=== PATIENT | male | born 1960 | race Caucasian/White ===

== ENCOUNTER 2018-04-17 12:04 | Emergency (ER) | payer MEDICARE, MEDICAID ==
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
[2018-04-17 13:28] VITALS: BP 123/84
--- NOTE | 2018-04-17 13:33 | UC ---
General HPI - HPI Summary HPI Summary: fell last pm and bumped his L elbow. c/o pain over site. denies any other injury. tetanus is utd. - History of Current Complaint Stated Complaint: LEFT ELBOW INJURY S/P FALL Time Seen by Provider: 04/17/18 13:25 Hx Obtained From: Patient, Family/Emergency Department Director Onset/Duration: Sudden Onset Timing: Constant Aggravating: pressure over site - Allergy/Home Medications Allergies/Adverse Reactions: Allergies Allergy/AdvReac Type Severity Reaction Status Date / Time No Known Allergies Allergy Verified 04/17/18 13:31 Home Medications: Home Medications Neomycin/Bacitracin/Polymyxinb [Triple Antibiotic Ointment] 1 applic TOPICAL BID PRN 04/17/18 [History Confirmed 04/17/18] Triamcinolone 0.5% CREAM(NF) [Kenalog Cream 0.5%(NF)] 1 applic TOPICAL BID 04/17 [History Confirmed 04/17/18] PMH/Surg Hx/FS Hx/Imm Hx - Additional Past Medical History Additional PMH: Tourettes, rosacea, htn. anxiety, congitive limitation-mild - Surgical History Surgical History: None - Family History Known Family History: Positive: Unknown - pt unaware of his family history - Social History Lives: [facility] Alcohol Use: None Substance Use Type: None Smoking Status (MU): Never Smoked Tobacco - Immunization History Most Recent Influenza Vaccination: 05-01-15 Most Recent Tetanus Shot: 07-23-09 Hx Tetanus, Diphtheria Vaccination: Yes Vaccination Up to Date: Yes Review of Systems Constitutional: Negative Skin: Rash - 2 spots over l elbow, chronic Eyes: Negative ENT: Negative Respiratory: Negative Cardiovascular: Negative Gastrointestinal: Negative Genitourinary: Negative Motor: Negative Neurovascular: Negative Musculoskeletal: Other: - abrasion, mild swelling and redness over L elbow Neurological: Negative Psychological: Negative Is Patient Immunocompromised?: No All Other Systems Reviewed And Are Negative: Yes Physical Exam Triage Information Reviewed: Yes Appearance: Well-Appearing Vital Signs Reviewed: Yes Eyes: Positive: Conjunctiva Clear ENT: Positive: Normal ENT inspection Neck: Positive: Supple, Nontender, No Lymphadenopathy Respiratory: Positive: Chest non-tender, Lungs clear, Normal breath sounds Cardiovascular: Positive: RRR, No Murmur Abdomen Description: Positive: Nontender, No Organomegaly, Soft Bowel Sounds: Positive: Present Musculoskeletal: Positive: Other: - LUE: Shoulder is without deformity or tenderness. Elbow has mild swelling over the olecranon process consistent with a bursitis with an associated mild central abrasion and surrounding mild erythema and warmth. Patient notes tenderness to palpation. He is able to flex extend supinate and pronate the elbow without any pain. The forearm wrist and hand are atraumatic and the hand has full sensorivascular motor function. Head, cervical, thoracic and lumbar spine are without deformity or tenderness pelvis is without instability or tenderness and the rest of the extremities are atraumatic. Diagnostics - Radiology No standard instances Radiology Interpretation Completed By: Radiologist - IMPRESSION: No fracture of the left elbow is noted. Course/Dx - Course Course Of Treatment: no fx or dislocation. no concern for septic joint. mild bursitis on exam with abrasion and secondary cellulitis. - Differential Dx - Multi-Symptom Provider Diagnoses: Bursitis L elbow. Abrasion L elbow. cellulitis L elbow. Discharge - Sign-Out/Discharge Documenting (check all that apply): Patient Departure All imaging exams completed and their final reports reviewed: Yes - Discharge Plan Condition: Stable Disposition: HOME Prescriptions: Cephalexin CAP* [Keflex CAP*] 500 mg PO TID 10 Days #30 cap Patient Education Materials: Cellulitis (ED), Elbow Bursitis (ED) Referrals: Brigette Gómez MD [Primary Care Provider] - 2 Days Additional Instructions: GO TO THE ER FOR ANY WORSENING. - Billing Disposition and Condition Condition: STABLE Disposition: Home
--- NOTE | 2018-04-17 14:05 | RAD ---
Indication: Left elbow pain. 4 views of left elbow demonstrates no fracture. No joint effusion is noted. IMPRESSION: No fracture of the left elbow is noted.
[2018-04-17] MEDS ORDERED: Cephalexin CAP* 500 MG PO ONE (14:25)
== END 2018-04-17 14:34 | disposition home or self-care (01) ==
LOC: UCCORT 12:04
DX: M70.32 Other bursitis of elbow, left elbow (principal); S50.312A Abrasion of left elbow, initial encounter; W19.XXXA Unspecified fall, initial encounter; Y92.9 Unspecified place or not applicable; L03.114 Cellulitis of left upper limb
CPT/HCPCS: 99212; A9270-GY; G0463

== ENCOUNTER 2018-05-21 16:53 | Emergency (ER) | payer MEDICARE, MEDICAID ==
--- OUTSIDE RECORDS SUMMARY | 2018-05-21 18:28 | XMS REPORT | Continuity of Care Document ---
:1960 External Reference #:[id number] Author Name Randa Camacho Care Team Providers Name Role Phone Brigette Gómez M.D. Care Team Information Netsuite Developer Unavailable Brigette Gómez M.D. Primary Care Physician Unavailable Payers Type Date Identification Numbers Payment Provider Subscriber Effective: 2013 Policy Number: [id number] Medicare Nathaniel Vanessa PayID: [id number] [address] [place] [address] Policy Number: [id number] Medicaid/Medicare Nathaniel Vanessa Group Name: 2 1 [address] PayID: [id number] [place] [address] Advance Directives Description No Information Available Problems Date Description Provider Status Onset: 12/28/2013 Raised prostate specific antigen Chaim Staples MD Active Onset: 12/28/2013 Benign prostatic hypertrophy with Johan Parker M.D. Active outflow obstruction Family History Date Family Member(s) Problem(s) Comments Father due to Cancer () Mother Unknown Social History Type Date Description Comments Sex Unknown Marital Status Patient is single Occupation Disabled Tobacco Use Reviewed: 12/10/17 Never Smoked Cigarettes Smoking Status Reviewed: 05/14/18 Never Smoked Cigarettes Tobacco Use Start: Unknown Never Smoked Cigars Tobacco Use Start: Unknown Never Smoked A Pipe ETOH Use Patient denies alcohol use Allergies, Adverse Reactions, Alerts Description No Known Drug Allergies Medications Medication Date Status Form Strength Qnty SIG Indications Ordering Provider Guanfacine HCL ER 06/16 Active Tablets 1mg 2 po q hs Arnold ER 24HR MD Kevin Benztropine 00/ Active Tablets 1mg 1 po q am Unknown Mesylate /0000 Fluoxetine HCL Active Capsules 20mg 1 tab every Unknown /0000 day by mouth Haloperidol 00 Active Tablets 0.5mg 1 po bid Unknown /0000 Hydrochlorothiazid Active Tablets 12.5mg 1 by mouth Unknown e /0000 every day Debrox 00 Active Solution 6.5% 2 gtts to Unknown /0000 each ear j for the first 5 days of each month Triamcinolone Active Cream 0.5% apply to Unknown Acetonide /0000 affected sparingly twice a day until resolved Metronidazole Active Cream 0.75% apply 1 Unknown / application topically to affected area daily at bedtime after cleansing Cipro 04/01 Hx Tablets 500mg 6tabs twice a day Johan Kamara, - M.DLoraine 04/04 Ciprofloxacin HCL 01/10 Hx Tablets 500mg 28tab 1 by mouth [facility] s twice a day Johan Kamara, - M.DLoraine 01/24 Ciprofloxacin HCL 11/17 Hx Tablets 500mg 6tabs 790.93 Johan Kamara, Salvador M.DLoraine 11/20 Metronidazole 11/09 Hx Gel 0.75% 70gm 1 apply to face and Johan Kamara, - scalp after M.D. 06/16 cleansing every bedtime Debrox 11/09 Hx Solution 6.5% 1bott 2 drop to le each ear Johan Kamara, - canal daily M.D. 06/16 for the first 5 days of each month Hydrocortisone Hx Cream 0.1% 45gm apply to Unknown Butyrate /0000 affected - areas bid- 11/17 three times a day as needed Hydrochlorothiazid Hx Tablets 12.5mg 30tab 1 by mouth Unknown e /0000 s every day - 06/16 Cogentin Hx Solution 1mg/ml 1 po bid Unknown - 11/17 Haldol Decanoate Hx Solution 1mg 1/2 tab Unknown twice a day - 07/18 Tenex Hx Tablets 1mg 2 tabs po Unknown qhs - 11/17 Benztropine Hx Tablets 1mg Unknown Mesylate / - 06/16 Guanfacine HCL 00 Hx Tablets 2mg Unknown - 06/16 Guanfacine HCL 0000 Hx Tablets 1mg Joyman, /0000 Salvador Ge MD 07/18 Haloperidol Hx Tablets 0.5mg Pam, /0000 Salvador Ge MD 06/16 Trilyte Hx Solution 420gm Syam, /0000 Salvador Keith M.D. 07/19 Hydrochlorothiazid 00 Hx Capsules 12.5mg Rico e /0000 Salvador Machuca M.D. 07/18 Metronidazole Hx Cream 0.75% Rico, /0000 Salvador Machuca M.D. 07/18 Guanfacine HCL Hx Tablets 1mg Unknown /0000 - 02/27 Immunizations Description No Information Available Vital Signs Date Vital Result Comment 05/14/2018 3:11pm Height 69 inches 5'9" Weight 150.00 lb Weight 68.040 kg BMI (Body Mass Index) 22.1 kg/m2 12/10/2017 3:38pm Height 69 inches 5'9" Weight 150.00 lb Weight 68.040 kg BMI (Body Mass Index) 22.1 kg/m2 BP Systolic 136 mmHg BP Diastolic 82 mmHg Heart Rate 72 /min Respiratory Rate 18 /min 06/10/2017 3:27pm Height 69 inches 5'9" Weight 156.00 lb Weight 70.762 kg BMI (Body Mass Index) 23.0 kg/m2 BP Systolic 140 mmHg BP Diastolic 88 mmHg Heart Rate 4 /min 02/28/2016 3:49pm Height 69 inches 5'9" Weight 162.00 lb Weight 73.483 kg BMI (Body Mass Index) 23.9 kg/m2 BP Systolic 124 mmHg BP Diastolic 80 mmHg Heart Rate 78 /min Body Temperature 97.8 F 02/28/2015 3:23pm Height 69 inches 5'9" Weight 160.00 lb Weight 72.576 kg BMI (Body Mass Index) 23.6 kg/m2 BP Systolic 128 mmHg BP Diastolic 76 mmHg Heart Rate 68 /min Respiratory Rate 16 /min Body Temperature 97.2 F 11/17/2013 12:08pm Height 69 inches 5'9" Weight 161.00 lb Weight 73.030 kg BMI (Body Mass Index) 23.8 kg/m2 BP Systolic 142 mmHg left wrist audio BP Diastolic 92 mmHg left wrist audio Heart Rate 68 /min Body Temperature 97.6 F Results Test Date Facility Test Result H/L Range Note 230 Ua Routine 05/14/2018 [facility] Ua Glucose Negative REF TO DR ADDRESS ON ORDER FOR (315)- - Ua Protein Negative Ua Nitrite Negative Ua Leuko Trace * Ua Blood Negative Ua Color Yellow Ua Ketones Negative Ua Clarity Clear Ua Specific Brewer 1.010 1.003-1.030 Ua PH 7.0 5.0-7.5 Ua Bilirubin Negative Ua Urobilinogen 0.2 E.U./dL 0.0-1.0 Laboratory test 05/14/2018 [facility] Total PSA 23.97 ng/mL High 0.00-4.[address] [place] [address] With Reflex [place], [place] [id number] [phone] 230 Ua Routine 12/10/2017 [facility] Ua Glucose Negative REF TO DR ADDRESS ON ORDER FOR (315)- - Ua Protein Negative Ua Nitrite Negative Ua Leuko 2+ * Ua Blood Negative Ua Color Yellow Ua Ketones Negative Ua Clarity Clear Ua Specific Brewer 1.010 1.003-1.030 Ua PH 7.0 5.0-7.5 Ua Bilirubin Negative Ua Urobilinogen 0.2 E.U./dL 0.0-1.0 Laboratory test 12/10/2017 [facility] Total Psa 26.53 ng/mL High 0.00-4.[address] [place] [address] [phone] Laboratory test 06/10/2017 [facility] Total Psa 25.41 ng/mL High 0.00-4.[address] [place] [address] [phone] 230 Ua Routine 06/10/2017 [facility] Ua Glucose Negative REF TO DR ADDRESS ON ORDER FOR (315)- - Ua Protein Negative Ua Nitrite Negative Ua Leuko 3+ * Ua Blood 1+ * Ua Color yellow Ua Ketones Negative Ua Clarity clear Ua Specific Brewer 1.010 1.003-1.030 Ua PH 6.0 5.0-7.5 Ua Bilirubin Negative Ua Urobilinogen 0.2 E.U./dL 0.0-1.0 230 Ua Routine 11/26/2016 [facility] Ua Glucose Negative REF TO DR ADDRESS ON ORDER FOR (315)- - Ua Protein Negative Ua Nitrite Negative Ua Leuko Trace * Ua Blood Trace-intact * Ua Color yellow Ua Ketones Negative Ua Clarity clear Ua Specifici Brewer <=1.005 1.003-1.030 Ua PH 6.0 5.0-7.5 Ua Bilirubin Negative Ua Urobilinogen 0.2 E.U./dL 0.0-1.0 Laboratory test 11/26/2016 [facility] Total Psa 33.66 High 0.00-4.00 finding [address] [facility] Only ng/[place] [address] [phone] Testosterone 560.52 ng/dL 300.00-1000.00 Prostate Biopsy 04/29/2016 [facility] Clinical History R97.20 N [address] [place] [address] [phone] Left Base Benign prostatic <SEE NOTE> N 1 Left Lateral Base Benign prostatic <SEE NOTE> N 2 Left Mid Benign prostatic <SEE NOTE> N 3 Left Lateral Mid Benign prostatic <SEE NOTE> N 4 Left Brewster Benign prostatic <SEE NOTE> N 5 Left Lateral Brewster Benign prostatic <SEE NOTE> N 6 Right Base Benign prostatic <SEE NOTE> N 7 Right Lateral Base Benign prostatic <SEE NOTE> N 8 Right Mid Benign prostatic <SEE NOTE> N 9 Right Lateral Mid Benign prostatic <SEE NOTE> N 10 Right Brewster Benign prostatic <SEE NOTE> N 11 Right Lateral Brewster Benign prostatic <SEE NOTE> N 12 Right Mid Transition Zone Benign prostatic <SEE NOTE> N 13 Left Mid Transition Zone Benign prostatic <SEE NOTE> N 14 PDF Report SEE IMAGE CBC W/Diff 04/15/2016 [facility] Hemoglobin 15.6 12.8-17.0 [address] [place], [place] [id number] [phone] Hematocrit 46.6 38.0-48.0 BMP 04/15/2016 [facility] BUN - Urea Nitrogen 12 7 -18 [address] [place] [address] [phone] Creatinine 1.1 0.6-1.3 Calcium 8.9 8.5-10.1 Potassium 3.7 3.5-5.1 Laboratory test 04/15/2016 [facility] Rectal Swab NEGATIVE - No 15 finding [address] [facility] Screen Fl <SEE NOTE> [place] [address] [phone] 230 Ua Routine 04/01/2016 [facility] Ua Glucose Negative REF TO DR ADDRESS ON ORDER FOR (315)- - Ua Protein Negative Ua Nitrite Negative Ua Leuko 1+ * Ua Blood Negative Ua Color yellow Ua Ketones Negative Ua Clarity clear Ua Specifici Brewer 1.010 1.003-1.030 Ua PH 6.5 5.0-7.5 Ua Bilirubin Negative Ua Urobilinogen 0.2 E.U./dL 0.0-1.0 BUN And Creatinine 03/07/2016 [facility] BUN - Urea 12 7-[address] [place] [address] [phone] Creatinine 1.1 0.6-1.3 Laboratory test 02/28/2016 [facility] Total Psa 20.81 High 0.00-4.[address] [place] [address] Only ng/mL [place], [place] [id number] [phone] Testosterone 510.98 ng/dL 300.00-1000.00 230 Ua Routine 02/28/2016 [facility] Ua Glucose Negative REF TO DR ADDRESS ON ORDER FOR (315)- - Ua Protein Negative Ua Nitrite Negative Ua Leuko 1+ * Ua Blood Negative Ua Color yellow Ua Ketones Negative Ua Clarity clear Ua Specifici Brewer 1.015 1.003-1.030 Ua PH 7.0 5.0-7.5 Ua Bilirubin Negative Ua Urobilinogen 0.2 E.U./dL 0.0-1.0 230 Ua Routine 08/28/2015 [facility] Ua Glucose Negative REF TO DR ADDRESS ON ORDER FOR (315)- - Ua Protein Negative Ua Nitrite Negative Ua Leuko Trace * Ua Blood Negative Ua Color yellow Ua Ketones Negative Ua Clarity clear Ua Specific Brewer 1.015 1.003-1.030 Ua PH 7.0 5.0-7.5 Ua Bilirubin Negative Ua Urobilinogen 0.2 E.U./dL 0.0-1.0 Laboratory test 08/28/2015 [facility] Total Psa 25.31 High 0.00-4.[address] [place] [address] ST Only ng/[place] [address] [phone] Testosterone 488.41 ng/dL 300.00-1000.00 #Ua Routine 02/28/2015 [facility] Ua Glucose Negative REF TO DR ADDRESS ON ORDER FOR (315)- - Ua Protein Negative Ua Nitrite Negative Ua Leuko Trace * Ua Blood Negative Ua Color yellow Ua Ketones Negative Ua Clarity clear Ua Specific Brewer 1.025 1.003-1.030 Ua PH 6.5 5.0-7.5 Ua Bilirubin Negative Ua Urobilinogen 0.2 E.U./dL 0.0-1.0 Laboratory 02/23/2015 [facility] Total Psa 21.85 ng/ mL High 0.00-4.00 test finding [address] [place] [address] [place] [address] [phone] Prostate 08/14/2014 [facility] Elevated N [address] [place] [address] History PSA, 79 <[place] [address] NOTE> [phone] BodySite PROSTATE N SubSite RIGHT LATERAL AP <SEE NOTE> N 17 SpecialProcedure BIOPSY N Final Diagnosis Benign prostatic <SEE NOTE> N 18 Stain 1-3 N CPTCode 46902i06 N [id number] 790.93 N PDF Report SEE IMAGE #Ua Routine 07/19/2014 [facility] Ua Glucose Negative REF TO DR ADDRESS ON ORDER FOR (315)- - Ua Protein Negative Ua Nitrite Negative Ua Leuko Negative Ua Blood Negative Ua Color yellow Ua Ketones Negative Ua Clarity clear Ua Specific Brewer 1.025 1.003-1.030 Ua PH 7.0 5.0-7.5 Ua Bilirubin Negative Ua Urobilinogen 0.2 E.U./dL 0.0-1.0 Laboratory test 07/19/2014 [facility] Rectal Swab NEGATIVE - No [address] [place] [address] Screen Fl <SEE NOTE> [place] [address] [phone] Laboratory test 07/17/2014 [facility] Total Psa 15.61 ng/mL High 0.00- finding [address] [place] [address] Only 4.[address] [place] [address] [phone] Testosterone 401.14 ng/dL 300.00-1000.00 Prostate Biopsy 01/02/2014 [facility] Clinical History Elevated PSA 790 N [address] [place] [address] <SEE NOTE> [place] [address] [phone] BodySite PROSTATE N SubSite RIGHT LATERAL AP <SEE NOTE> N 21 SpecialProcedure BIOPSY N Final Diagnosis Benign prostatic <SEE NOTE> N 22 CPTCode 70203w41 N [id number] 790.93 N PDF Report SEE IMAGE Rectal Swab SCR 11/17/2013 [facility] Rectal Swab NEGATIVE - No 23 Panel 1226 [facility] <SEE NOTE> [place] [address] [phone] #Ua Routine 11/17/2013 [facility] Ua Glucose Negative REF TO DR ADDRESS ON ORDER FOR (315)- - Ua Protein Negative Ua Nitrite Negative Ua Leuko Trace * Ua Blood Negative Ua Color yellow Ua Ketones Negative Ua Clarity clear Ua Specific Brewer 1.010 1.003-1.030 Ua PH 6.5 5.0-7.5 Ua Bilirubin Negative Ua Urobilinogen 0.2 E.U./dL 0.2-1 Laboratory test 08/24/2013 Outside Facility PSA Total 19.5 High 0.0-4.0 finding (315)- - BUN & Creatinine 08/24/2013 Outside Facility BUN - Urea 9 9-21 ([facility]) (315)- - Nitrogen Creatinine Serum 1.1 0.8-1.5 BUN & Creatinine 08/26/2012 Outside Facility BUN - Urea Nitrogen 11 5- 23 ([facility]) (315)- - Creatinine Serum 1.0 0.5-1.4 BUN & Creatinine ([facility]) 08/22/2011 Outside Facility BUN - Urea Nitrogen 14 (315)- - Creatinine Serum 1.0 1 Benign prostatic tissue. 2 Benign prostatic tissue. 3 Benign prostatic tissue. 4 Benign prostatic tissue. 5 Benign prostatic tissue. 6 Benign prostatic tissue. 7 Benign prostatic tissue. 8 Benign prostatic tissue. Mild acute inflammation present. 9 Benign prostatic tissue. Mild acute inflammation present. 10 Benign prostatic tissue. 11 Benign prostatic tissue. 12 Benign prostatic tissue. 13 Benign prostatic tissue. Mild acute inflammation present. 14 Benign prostatic tissue. 15 NEGATIVE - No Fluoroquinolone Resistant Organisms Isolated 16 Elevated PSA, 790.93 17 RIGHT LATERAL APEX 18 Benign prostatic tissue. 19 NEGATIVE - No Fluoroquinolone Resistant Organisms Isolated 20 Elevated PSA 790.93 21 RIGHT LATERAL APEX 22 Benign prostatic tissue. 23 NEGATIVE - No Fluoroquinolone Resistant Organisms Isolated Procedures Date Code Description Status 04/29/2016 34813 Ultrasonic Guidance For Needle Completed Placement(Biopsy);Supervis & Inter 04/29/2016 84958 Ultrasound,Prostate-Ultrasound Completed 04/29/2016 74344 Biopsy, Prostate, Needle Or Punch, Single Or Multiple, Completed Any Approa 08/28/2015 44146 Bladder Scan, Post Voiding Residual Urine Completed 08/14/2014 95032 Ultrasonic Guidance For Needle Completed Placement(Biopsy);Supervis & Inter 08/14/2014 41976 Ultrasound,Prostate-Ultrasound Completed 08/14/2014 66436 Biopsy, Prostate, Needle Or Punch, Single Or Multiple, Completed Any Approa 01/02/2014 67360 Ultrasonic Guidance For Needle Completed Placement(Biopsy);Supervis & Inter 01/02/2014 84109 Ultrasound,Prostate-Ultrasound Completed 01/02/2014 01164 Biopsy, Prostate, Needle Or Punch, Single Or Multiple, Completed Any Approa 11/17/2013 31604 Ultrasound, Pelvic Limited (Bladder US) Completed 10/27/2013 [id number] Colonoscopy Completed Encounters Type Date Location Provider Dx Diagnosis Office Visit 12/10/2017 Tory Estrada R97.20 Elevated prostate 3:30p Urology Claire,P.A. specific antigen [PSA] Office Visit 06/10/2017 Tory Estrada R97.20 Elevated prostate 3:30p Urology ClaireP.ALoraine specific antigen [PSA] N40.1 Benign prostatic hyperplasia with lower urinary tract symp Office Visit 11/26/2016 Johan Porter R97.20 Elevated 3:10p Keturahy Marion Kamara prostate specific antigen [PSA] N40.1 Benign prostatic hyperplasia with lower urinary tract symp Office Visit 05/20/2016 Johan Porter R97.20 Elevated 2:40p Jay Kamara M.D. prostate specific antigen [PSA] N40.1 Benign prostatic hyperplasia with lower urinary tract symp Office Visit 04/01/2016 Johan Porter R97.2 Elevated 3:00p Urology Marion Kamara prostate specific antigen [PSA] N40.1 Enlarged prostate with lower urinary tract symptoms Office Visit 02/28/2016 Johan Porter R97.2 Elevated 3:20p Urology Marion Kamara prostate specific antigen [PSA] N40.1 Enlarged prostate with lower urinary tract symptoms R35.1 Nocturia Office Visit 08/28/2015 Sawyer/Johan Miller R97.2 Elevated 3:00p Urology Marion Kamara prostate specific antigen [PSA] N40.1 Enlarged prostate with lower urinary tract symptoms R35.1 Nocturia N39.41 Urge incontinence R35.0 Frequency of micturition Office Visit 02/28/2015 Sawyer/Johan Miller 790.93 Elevated 3:00p Urology Marion Kamara Prostate Specific Antigen (PSA) 600.01 Hypertrophy Benign Of Prostate With Urinary Obstruction Office Visit 09/01/2014 9:15a Sawyer/Liz Carbajal, 790.93 Elevated Urology MATHEMATICAL ENGINEER/PA Prostate Specific Antigen (PSA) Office Visit 07/19/2014 3:00p Sawyer/Long Parker 790.93 Elevated Urology Johan Kamara M.D. Prostate Specific Antigen (PSA) 600.01 Hypertrophy Benign Of Prostate With Urinary Obstruction Office Visit 01/10/2014 Sawyer/Johan Miller 790.93 Elevated 2:30p Urologstephan Kamara M.D. Prostate Specific Antigen (PSA) 600.01 Hypertrophy Benign Of Prostate With Urinary Obstruction Office Visit 11/17/2013 Sawyer/Johan Miller 790.93 Elevated 11:50a Urologstephan Kamara M.D. Prostate Specific Antigen (PSA) 600.01 Hypertrophy Benign Of Prostate With Urinary Obstruction Plan of Treatment 05/14/2018 - Vasiliy Rangel,P.A.R97.20 Elevated prostate specific antigen [ PSA]Comments:Unless otherwise indicated follow-up [address] Brown
--- OUTSIDE RECORDS SUMMARY | 2018-05-21 18:29 | XMS REPORT ---
:1960 External Reference #:[id number] Author Organization [facility] Address [address] [address] Phone [phone] Care Team Providers Name Role Phone Brigette Gómez MD Primary Care Physician Unavailable Payers Type Date Identification Numbers Payment Provider Subscriber Medicare Primary Policy Number: [id number] Medicare Nathaniel Vanessa PayID: [id number] [address] [place] [address] [employer] Part B Policy Number: [id number] Medicaid ### >11 Nathaniel Vanessa PayID: [id number] [address] [place] [address] Problems Date Description Provider Status Onset: 04/29/2013 [...] Day as Needed For Minor Cuts/Wound s NV-Acid 07/23 Active Suspension 200-200-2 00uni 1 0mg/5ML [...] Tablets 1mg 1 po bid F95.2 Kalpana Orozcoylate MD Juju Prozac Active Capsules 20mg 1 [...] CPT Code Status Date Vaccine Lot # [id number] Given 04/02/2018 Afluria Imunization 40155 Given 05/06/2017 Afluria Or Fluvirin Flu Vac Intramuscular Q2037 Given 04/13/2016 Fluvirin Immunization 02909 Given 02/25/2016 Tetanus And Diptheria Toxoids For Adult [id number] Use-preservative free Q2037 Given 07/28/2014 Fluvirin Immunization 07778 Given 03/15/2013 Afluria Or Fluvirin Flu Vac Intramuscular 40393 Given 03/11/2012 Afluria Or Fluvirin Flu Vac Intramuscular 86928 Given 03/06/2011 Afluria Or Fluvirin Flu Vac Intramuscular 89858 Given 07/23/2009 Tdap (Adacel) Ages 7 And Above Only 26269 Given 03/22/2009 Afluria Or Fluvirin Flu Vac Intramuscular 65054 Given 05/01/2008 Afluria Or Fluvirin Flu Vac Intramuscular 92699 Given 04/20/2007 Afluria Or Fluvirin Flu Vac Intramuscular 48916 Given 06/10/2006 Afluria Or Fluvirin Flu Vac Intramuscular 15599 Given 05/07/2005 Afluria Or Fluvirin Flu Vac Intramuscular 89447 Given 05/07/2004 Afluria Or Fluvirin Flu Vac Intramuscular 55187 Given 02/26/2004 Immunization Td 7 Yrs Or Older Vital Signs Date Vital Result Comment 04/26/2018 Body Temperature 97.6 F Weight 159.00 lb Heart Rate 72 /min BP Systolic 118 mmHg BP Diastolic 70 mmHg Respiratory Rate 18 /min Height 70 inches 5'10" BMI (Body Mass Index) 22.8 kg/m2 03/29/2018 Weight 157.00 lb Heart Rate 63 [...] 1 Lymph % 21.2 % 20.0-42.0 1 Barrow % 4.1 % 0.0-10.0 1 Eo% 5.6 % 0.0-6.6 1 Bas% 0.5 % 0.0-1.1 1 Neut# 2.69 K/uL 1.8-7.0 1 Lymph # 0.83 K/uL Low 1.0-4.0 1 Barrow # 0.16 K/uL 0.0-0.8 1 Eos # 0.22 K/uL 0.0-0.5 1 Baso # 0.02 K/uL 0.0-0.1 1 Comprehensive Met Panel-FCM 03/27/2018 Glucose 94 mg/dL 74-106 1 BUN [...] 1 5.0-7.5 Ua Protein Negative Ua Specific [place] 1.010 1 1.003-1.030 Ua Urobilinogen 0.2 E.U./dL 0.0-1.0 Laboratory test finding 06/10/2017 Total Psa Only 25.41 ng/mL High 0.00- 4.00 230 Ua Routine 06/10/2017 Ua Bilirubin Negative Ua Blood 1+ Ua Clarity clear Ua Color yellow Ua Glucose Negative Ua Ketones Negative Ua Leuko 3+ Ua Nitrite Negative Ua PH 6.0 1 5.0-7.5 Ua Protein Negative Ua Specific [place] 1.010 1 1.003-1.030 Ua Urobilinogen 0.2 E.U./dL [...] Lymph % 18.0 % Low 20.0-42.0 7 Barrow % 4.6 % 0.0-10.0 7 Eo% 4.4 % 0.0-6.6 7 Bas% 0.8 % 0.0-1.1 7 Neut# 4.41 K/uL 1.8-7.0 7 Lymph # 1.10 K/uL 1.0-4.0 7 Barrow # 0.28 K/uL 0.0-0.8 7 Eos # [...] 0.0-4.0 % Lymph 22 % 20-44 % Barrow 5.4 % 2.0-10.0 % Yvon 66 % 50-70 Absolute Baso. 0.1 K/ul 0.0-0.3 Absolute Eos. 0.3 K/ul 0.0-0.5 Absolute Lymph. 1.1 K/ul 0.8-4.8 Absolute Barrow. 0.3 K/ul 0.1-1.0 Absolute Yvon. 3.34 K/ul [...] with a HCV Nucleic Acid Amplification test ([id number]). Performed at: [facility] [address] [id number] Home Inspector: Sonia Davalos MD, Phone: [phone] 14 today 15 Concerning GFR Guidelines for [...] Date CPT Code Description Status Comment 09/24/2017 63198 Brief Emotional/Behav Assessment W/ Completed Scoring Doc Per Standard Inst 03/26/2017 41397 Brief Emotional/Behav Assessment W/ Completed Scoring Doc Per Standard Inst 06/12/2016 28920 Remove Impacted Cerumen Requiring Completed Instrumentation 04/18/2016 99970 Electrocardiogram Complete Completed 11/03/2014 00743 Remove Impacted Cerumen Requiring Completed Instrumentation 10/25/2013 Colonoscopy Completed repeat in 10 years Encounters Type Date Location Provider CPT E/M Dx Office Visit 03/29/2018 1:00p [facility] Brigette Gómez MD G0439 Z00.00 Z71.9 Z13.89 F95.2 H40.9 L71.9 I10 Office Visit 11/16/2017 9:30a [facility] [place] [address] L20.9 Office Visit 09/24/2017 1:00p [facility] Brigette Gó[place] [address] F95.2 L71.9 I10 R97.20 Z13.89 Z68.22 Office Visit 03/26/2017 1:30p [facility] Brigette Gómez MD G0439 Z00.00 F95.2 H40.9 L71.9 I10 R97.20 Z68.23 Office Visit 12/16/2016 2:45p [facility] Brigette Gó[place] [address] R21 Office Visit 08/26/2016 2:30p [facility] Brigette Gó[place] [address] F95.2 L71.9 I10 R97.20 Z11.59 Office Visit 04/18/2016 1:45p [facility] Brigette Gó[place] [address] Z01.818 R97.20 F95.2 H40.9 L71.9 I10 Office Visit 04/11/2016 11:30a [facility] [place] [address] B35.3 L03.032 Office Visit 03/11/2016 2:00p [facility] Brigette Gómez MD G0439 Z00.00 R97.2 I10 L71.9 H40.9 F95.2 Office Visit 02/25/2016 2:30p [facility] Kavitha Huerta, REFINERY PIPELINE OPERATOR 38805 Y04.1xxA Z23 Office Visit 10/01/2015 9:15a [facility] Brigette Gó[place] [address] F95.2 H40.9 L71.9 R97.2 I10 Office Visit 07/24/2015 8:45a [facility] Brigette Gó[place] [address] Y04.1xxA S51.851A F95.2 Office Visit 03/08/2015 9:00a [facility] Brigette Gómez MD G0439 V70.0 307.23 365.9 695.3 790.93 Office Visit 11/03/2014 2:00p [facility] Kavitha Huerta, REFINERY PIPELINE OPERATOR [address] 380.4 Office Visit 09/28/2014 9:15a [facility] Brigette Gó[place] [address] 307.23 365.9 695.3 401.1 790.93 Plan of Care Future Appointment(s):04/01/2019 9:00 am - Brigette Gómez MD at [facility]09/27/2018 9:00 am - Brigette Gómez MD at [facility]04/26/2018 - Kim Gray, PAL03.114 Cellulitis of LEFT upper limbComments:Resolving cellulitisContinue triple ABX ointmentMonitor for fevers, chills, worsening redness, swelling, drainage, or warmthFollow up:Prn
--- OUTSIDE RECORDS SUMMARY | 2018-05-21 18:29 | XMS REPORT | Continuity of Care Document ---
:1960 External Reference #:[id number] Author Name Randa Camacho Care Team Providers Name Role Phone Brigette Gómez M.D. Care Team Information Level Vial Marker Unavailable Brigette Gómez M.D. Primary Care Physician Unavailable Payers Type Date Identification Numbers Payment Provider Subscriber Effective: 2013 Policy Number: [id number] Medicare Nathaniel Vanessa PayID: [id number] [address] [place] [address] Policy Number: [id number] Medicaid/Medicare Nathaniel Vanessa Group Name: 2 1 [address] PayID: [id number] [place] [address] Advance Directives Description No Information Available Problems [...] Hx Tablets 500mg 28tab 1 by mouth [facility] s twice a day Johan Kamara, - [...] Ketones Negative Ua Clarity Clear Ua Specific [place] 1.010 1.003-1.030 Ua PH 7.0 5.0-7.5 Ua Bilirubin Negative Ua Urobilinogen 0.2 E.U./dL 0.0-1.0 Laboratory test 05/14/2018 [facility] [employer] Total Psa Only <pending> finding [address] [place] [address] [id number] [phone] 230 Ua Routine 12/10/2017 [facility] Ua Glucose Negative REF TO DR ADDRESS ON ORDER FOR (315)- - Ua Protein Negative Ua Nitrite Negative Ua Leuko 2+ * Ua Blood Negative Ua Color Yellow Ua Ketones Negative Ua Clarity Clear Ua Specific [place] 1.010 1.003-1.030 Ua PH 7.0 5.0-7.5 Ua Bilirubin Negative Ua Urobilinogen 0.2 E.U./dL 0.0-1.0 Laboratory test 12/10/2017 [employer] Total Psa 26.53 ng/mL High 0.00-4.[address] [place] [address] [phone] Laboratory test 06/10/2017 [employer] Total Psa 25.41 ng/mL High 0.00-4.[address] [place] [address] [phone] 230 Ua Routine 06/10/2017 [facility] Ua Glucose Negative REF TO DR ADDRESS ON ORDER FOR (315)- - Ua Protein Negative Ua Nitrite Negative Ua Leuko 3+ * Ua Blood 1+ * Ua Color yellow Ua Ketones Negative Ua Clarity clear Ua Specific [place] 1.010 1.003-1.030 Ua PH 6.0 5.0-7.5 Ua Bilirubin Negative Ua Urobilinogen 0.2 E.U./dL 0.0-1.0 230 Ua Routine 11/26/2016 [facility] Ua Glucose Negative REF TO DR ADDRESS ON ORDER FOR (315)- - Ua Protein Negative Ua Nitrite Negative Ua Leuko Trace * Ua Blood Trace-intact * Ua Color yellow Ua Ketones Negative Ua Clarity clear Ua Specifici [place] <=1.005 1.003-1.030 Ua PH 6.0 5.0-7.5 Ua Bilirubin Negative Ua Urobilinogen 0.2 E.U./dL 0.0-1.0 Laboratory test 11/26/2016 [employer] Total Psa 33.66 High 0.00-4.00 finding 12[address] [facility] Only ng/[place] [address] [phone] Testosterone 560.52 ng/dL 300.00-1000.00 Prostate Biopsy 04/29/2016 [facility] Clinical History R97.20 N 1226 [place], [place] [id number] [phone] Left Base Benign prostatic <SEE NOTE> N 1 Left Lateral Base Benign prostatic <SEE NOTE> N 2 Left Mid Benign prostatic <SEE NOTE> N 3 Left Lateral Mid Benign prostatic <SEE NOTE> N 4 Left Elgin Benign prostatic <SEE NOTE> N 5 Left Lateral [place] Benign prostatic <SEE NOTE> N 6 Right Base Benign prostatic <SEE NOTE> N 7 Right Lateral Base Benign prostatic <SEE NOTE> N 8 Right Mid Benign prostatic <SEE NOTE> N 9 Right Lateral Mid Benign prostatic <SEE NOTE> N 10 Right [place]gin Benign prostatic <SEE NOTE> N 11 Right Lateral [place] Benign prostatic <SEE NOTE> N 12 Right Mid Transition Zone Benign prostatic <SEE NOTE> N 13 Left Mid Transition Zone Benign prostatic <SEE NOTE> N 14 PDF Report SEE IMAGE CBC W/Diff 04/15/2016 [facility] Hemoglobin 15.6 12.8-17.0 [address] [place], [place] [id number] [phone] Hematocrit 46.6 38.0-48.0 BMP 04/15/2016 [facility] BUN - Urea Nitrogen 12 7 -18 [address] [place], [place] [id number] [phone] Creatinine 1.1 0.6-1.3 Calcium 8.9 8.5-10.1 Potassium 3.7 3.5-5.1 Laboratory test 04/15/2016 [facility] Rectal Swab NEGATIVE - No 15 finding 1226 [facility] Fl <SEE NOTE> [place] [address] [phone] 230 Ua Routine 04/01/2016 [facility] Ua Glucose Negative REF TO DR ADDRESS ON ORDER FOR (315)- - Ua Protein Negative Ua Nitrite Negative Ua Leuko 1+ * Ua Blood Negative Ua Color yellow Ua Ketones Negative Ua Clarity clear Ua Specifici [place] 1.010 1.003-1.030 Ua PH 6.5 5.0-7.5 Ua Bilirubin Negative Ua Urobilinogen 0.2 E.U./dL 0.0-1.0 BUN And Creatinine 03/07/2016 [facility] BUN - Urea 12 7-[address] [place] [address] [phone] Creatinine 1.1 0.6-1.3 Laboratory test 02/28/2016 [facility] [employer] [employer] Total Psa 20.81 High 0.00-4.00 finding [address] [facility] [address] Only ng/[place] [address] [phone] Testosterone 510.98 ng/dL 300.00-1000.00 230 Ua Routine 02/28/2016 [facility] Ua Glucose Negative REF TO DR ADDRESS ON ORDER FOR (315)- - Ua Protein Negative Ua Nitrite Negative Ua Leuko 1+ * Ua Blood Negative Ua Color yellow Ua Ketones Negative Ua Clarity clear Ua Specifici [place] 1.015 1.003-1.030 Ua PH 7.0 5.0-7.5 Ua Bilirubin Negative Ua Urobilinogen 0.2 E.U./dL 0.0-1.0 230 Ua Routine 08/28/2015 [facility] Ua Glucose Negative REF TO DR ADDRESS ON ORDER FOR (315)- - Ua Protein Negative Ua Nitrite Negative Ua Leuko Trace * Ua Blood Negative Ua Color yellow Ua Ketones Negative Ua Clarity clear Ua Specific [place] 1.015 1.003-1.030 Ua PH 7.0 5.0-7.5 Ua Bilirubin Negative Ua Urobilinogen 0.2 E.U./dL 0.0-1.0 Laboratory test 08/28/2015 [facility] Total Psa 25.31 High 0.00-4.00 finding [address] [facility] Only ng/[place] [address] [phone] Testosterone 488.41 ng/dL 300.00-1000.00 #Ua Routine 02/28/2015 [facility] Ua Glucose Negative REF TO DR ADDRESS ON ORDER FOR (315)- - Ua Protein Negative Ua Nitrite Negative Ua Leuko Trace * Ua Blood Negative Ua Color yellow Ua Ketones Negative Ua Clarity clear Ua Specific [place] 1.025 1.003-1.030 Ua PH 6.5 5.0-7.5 Ua Bilirubin Negative Ua Urobilinogen 0.2 E.U./dL 0.0-1.0 Laboratory 02/23/2015 [facility] Total Psa 21.85 ng/ mL High 0.00-4.[address] test finding [address] [place] [address] [place] [address] [phone] Prostate 08/14/2014 [facility] Clinical Elevated N [address] [place] [address] History PSA, 79 <[place] [address] NOTE> [phone] BodySite PROSTATE N SubSite RIGHT LATERAL AP <SEE NOTE> N 17 SpecialProcedure BIOPSY N Final Diagnosis Benign prostatic <SEE NOTE> N 18 Stain 1-3 N CPTCode 81552g04 N [id number] 790.93 N PDF Report SEE IMAGE #Ua Routine 07/19/2014 [facility] Ua Glucose Negative REF TO DR ADDRESS ON ORDER FOR (389)- - Ua Protein Negative Ua Nitrite Negative Ua Leuko Negative Ua Blood Negative Ua Color yellow Ua Ketones Negative Ua Clarity clear Ua Specific [place] 1.025 1.003-1.030 Ua PH 7.0 5.0-7.5 Ua Bilirubin Negative Ua Urobilinogen 0.2 E.U./dL 0.0-1.0 Laboratory test 07/19/2014 [facility] Rectal Swab NEGATIVE - No [address] [place] [address] Screen Fl <SEE NOTE> [place] [address] [phone] Laboratory test 07/17/2014 [employer] Total Psa 15.61 ng/mL High 0.00- finding [address] [place] [address] Only 4.00 [place] [address] [phone] Testosterone 401.14 ng/dL 300.00-1000.00 Prostate Biopsy 01/02/2014 [facility] Clinical History Elevated PSA [address] [place] [address] <SEE NOTE> [place] [address] [phone] BodySite PROSTATE N SubSite RIGHT LATERAL AP <SEE NOTE> N 21 SpecialProcedure BIOPSY N Final Diagnosis Benign prostatic <SEE NOTE> N 22 CPTCode 04374n25 N [id number] 790.93 N PDF Report SEE IMAGE Rectal Swab SCR 11/17/2013 [facility] Rectal Swab NEGATIVE - No 23 Panel 1226 [facility] <SEE NOTE> [place] [address] [phone] #Ua Routine 11/17/2013 [facility] Ua Glucose Negative REF TO DR DYLAN ON ORDER FOR (315)- - Ua Protein Negative Ua Nitrite Negative Ua Leuko Trace * Ua Blood Negative Ua Color yellow Ua Ketones Negative Ua Clarity clear Ua Specific [place] 1.010 1.003-1.030 Ua PH 6.5 5.0-7.5 Ua [...] Isolated Procedures Date Code Description Status 04/29/2016 23337 Ultrasonic Guidance For Needle Completed Placement(Biopsy);Supervis & Inter 04/29/2016 74276 Ultrasound,Prostate-Ultrasound Completed 04/29/2016 06425 Biopsy, Prostate, Needle Or Punch, Single Or Multiple, Completed Any Approa 08/28/2015 32071 Bladder Scan, Post Voiding Residual Urine Completed 08/14/2014 40928 Ultrasonic Guidance For Needle Completed Placement(Biopsy);Supervis & Inter 08/14/2014 55772 Ultrasound,Prostate-Ultrasound Completed 08/14/2014 93654 Biopsy, Prostate, Needle Or Punch, Single Or Multiple, Completed Any Approa 01/02/2014 83558 Ultrasonic Guidance For Needle Completed Placement(Biopsy);Supervis & Inter 01/02/2014 19735 Ultrasound,Prostate-Ultrasound Completed 01/02/2014 05258 Biopsy, Prostate, Needle Or Punch, Single Or Multiple, Completed Any Approa 11/17/2013 58629 Ultrasound, Pelvic Limited (Bladder US) Completed 10/27/2013 [id number] Colonoscopy Completed Encounters Type Date Location Provider Dx Diagnosis Office Visit 12/10/2017 Sawyer/Long Estrada R97.20 Elevated prostate 3:30p Urology ClaireP.A. specific antigen [PSA] Office Visit 06/10/2017 Tory Estrada R97.20 Elevated prostate 3:30p Urology ClaireP.A. specific antigen [PSA] N40.1 Benign prostatic hyperplasia with lower urinary tract symp Office Visit 11/26/2016 Sawyer/Johan Miller R97.20 Elevated 3:10p Jay Kamara M.D. prostate specific antigen [PSA] N40.1 Benign prostatic hyperplasia with lower urinary tract symp Office Visit 05/20/2016 Johan Porter R97.20 Elevated 2:40p Jay Kamara M.D. prostate specific antigen [PSA] N40.1 Benign prostatic hyperplasia with lower urinary tract symp Office Visit 04/01/2016 Johan Porter R97.2 Elevated 3:00p Jay Kamara M.D. prostate specific antigen [PSA] N40.1 Enlarged prostate with lower urinary tract symptoms Office Visit 02/28/2016 Johan Porter R97.2 Elevated 3:20p Jay Kamara M.D. prostate specific antigen [PSA] N40.1 Enlarged prostate with lower urinary tract symptoms R35.1 Nocturia Office Visit 08/28/2015 Swayer/Johan Miller R97.2 Elevated 3:00p Urology Marion Kamara prostate specific antigen [PSA] N40.1 Enlarged prostate with lower urinary tract symptoms R35.1 Nocturia N39.41 Urge incontinence R35.0 Frequency of micturition Office Visit 02/28/2015 Sawyer/Johan Miller 790.93 Elevated 3:00p Urology Marion Kamara Prostate Specific Antigen (PSA) 600.01 Hypertrophy Benign Of Prostate With Urinary Obstruction Office Visit 09/01/2014 9:15a Sawyer/Liz Carbajal, 790.93 Elevated Urology [employer] Prostate Specific Antigen (PSA) Office Visit 07/19/2014 3:00p Sawyer/Long Parker 790.93 Elevated Urology Johan Kamara M.D. Prostate Specific Antigen (PSA) 600.01 Hypertrophy Benign Of Prostate With Urinary Obstruction Office Visit 01/10/2014 Sawyer/Johan Miller 790.93 Elevated 2:30p Urologstephan Kamara M.D. Prostate Specific Antigen (PSA) 600.01 Hypertrophy Benign Of Prostate With Urinary Obstruction Office Visit 11/17/2013 Sawyer/Johan Miller 790.93 Elevated 11:50a Urology Marion Kamara Prostate Specific Antigen (PSA) 600.01 Hypertrophy Benign Of Prostate With Urinary Obstruction Plan of Treatment 05/14/2018 - Vasiliy RangelP.A.R97.20 Elevated prostate specific antigen [ PSA]Comments:Unless otherwise indicated follow-up [address] Brown
[2018-05-21 18:34] VITALS: BP 124/81
--- NOTE | 2018-05-21 20:35 | UC ---
Skin Complaint HPI - HPI Summary HPI Summary: Pt is accompanied by medicare contact specialist from [facility]. Pt reports that he woke this morning with c/o left elbow redness, swelling and tenderness. Pt reports that he slipped on the stairs and hit elbow on stair " a couple days ago" - History of Current Complaint Chief Complaint: UCSkin Time Seen by Provider: 05/21/18 18:59 Stated Complaint: LEFT ELBOW SKIN CONCERN Hx Obtained From: Patient Onset/Duration: Sudden Onset, Lasting Days, Still Present Skin Exposure Onset/Duration: Days Ago Timing: Constant Onset Severity: Moderate Current Severity: Moderate Pain Intensity: 0 Pain Scale Used: 0-10 Numeric Location: Discrete - left elbow Character: Swelling, Pain, Redness, Raised, Painful Aggravating Factor(s): Touch Alleviating Factor(s): Nothing Associated Signs & Symptoms: Positive: Tenderness Related History: Trauma - Allergy/Home Medications Allergies/Adverse Reactions: Allergies Allergy/AdvReac Type Severity Reaction Status Date / Time No Known Allergies Allergy Verified 05/21/18 18:31 Home Medications: Home Medications Hydrochlorothiazide TAB* [Hydrodiuril TAB*] 12.5 mg PO DAILY 05/21/18 [History Confirmed 05/21/18] metroNIDAZOLE [Metronidazole 0.75 % gel] 1 applic TOPICAL DAILY 05/21/18 [ History Confirmed 05/21/18] Review of Systems All Other Systems Reviewed And Are Negative: Yes Constitutional: Positive: Negative Skin: Positive: Other - erythema, swelling, small circular Eyes: Positive: Negative ENT: Positive: Negative Respiratory: Positive: Negative Cardiovascular: Positive: Negative Gastrointestinal: Positive: Negative Genitourinary: Positive: Negative Motor: Positive: Negative Neurovascular: Positive: Negative Musculoskeletal: Positive: Arthralgia, Edema, Myalgia Neurological: Positive: Negative Psychological: Positive: Negative Is Patient Immunocompromised?: No PMH/Surg Hx/FS Hx/Imm Hx Previously Healthy: Yes - Surgical History Surgical History: None Surgery Procedure, Year, and Place: TONSILLECTOMY. PROSTATE BIOPSYX 2 - Family History Known Family History: Positive: Unknown - pt unaware of his family history - Social History Occupation: Employed Full-time, Disabled Lives: [facility] Alcohol Use: None Substance Use Type: None Smoking Status (MU): Never Smoked Tobacco Have You Smoked in the Last Year: No - Immunization History Most Recent Influenza Vaccination: 10-27-15 Most Recent Tetanus Shot: 07-23-09 Hx Tetanus, Diphtheria Vaccination: Yes Vaccination Up to Date: Yes Physical Exam Triage Information Reviewed: Yes Appearance: Well-Appearing Vital Signs: Initial Vital Signs Temp 97.3 F 05/21/18 18:31 Pulse 62 05/21/18 18:31 Resp 14 05/21/18 18:31 BP 124/81 05/21/18 18:31 Pulse Ox 100 05/21/18 18:31 Vital Signs Reviewed: Yes Eye Exam: Normal ENT Exam: Normal Neck exam: Normal Respiratory Exam: Normal Respiratory: Positive: No respiratory distress Musculoskeletal: Positive: Edema @ - left elbow Neurological Exam: Normal Psychological Exam: Normal Skin Exam: Other - left elbow, erythema, with pencil eraser size dried scab that was unroofed for wound culture collection Course/Dx - Differential Diagnoses - Skin Complaint Differential Diagnoses: Cellulitis, Other - bursitis - Diagnoses Provider Diagnoses: cellulitis. left elbow bursitis Discharge - Sign-Out/Discharge Documenting (check all that apply): Patient Departure All imaging exams completed and their final reports reviewed: No Studies - Discharge Plan Condition: Stable Disposition: HOME Prescriptions: Sulfamethox/Trimethoprim DS* [Bactrim DS 800/160 TAB*] 1 tab PO Q12H #20 tab Patient Education Materials: Cellulitis (ED), Elbow Bursitis (ED) Referrals: Brigette Gómez MD [Primary Care Provider] - 4 Days - Billing Disposition and Condition Condition: STABLE Disposition: Home
--- NOTE | 2018-05-24 07:13 | UC ---
- Progress Note Progress Note: wound 3+ staph pt on Bactrim await sensitivity no change maryj 05/24/18 Discharge - Sign-Out/Discharge Documenting (check all that apply): Post-Discharge Follow Up All imaging exams completed and their final reports reviewed: No Studies - Discharge Plan Condition: Stable Disposition: HOME Prescriptions: Sulfamethox/Trimethoprim DS* [Bactrim DS 800/160 TAB*] 1 tab PO Q12H #20 tab Patient Education Materials: Cellulitis (ED), Elbow Bursitis (ED) Referrals: Brigette Gómez MD [Primary Care Provider] - 4 Days - Billing Disposition and Condition Condition: STABLE Disposition: Home
== END 2018-05-21 19:21 | disposition home or self-care (01) ==
LOC: UCCORT 16:53
DX: M70.32 Other bursitis of elbow, left elbow (principal); L03.114 Cellulitis of left upper limb
CPT/HCPCS: 87070; 87077; 87186; 87205; 87640; 87641; 99212; G0463

== ENCOUNTER 2018-06-30 19:32 | Emergency (ER) | payer MEDICARE, MEDICAID ==
--- OUTSIDE RECORDS SUMMARY | 2018-06-30 19:54 | XMS REPORT | Continuity of Care Document ---
:1960 External Reference #:[id number] Author Name Randa Frausto Care Team Providers Name Role Phone Amol Amador MD Primary Care Physician Unavailable Payers Type Date Identification Numbers Payment Provider Subscriber Policy Number: [id number] Medicare Nathaniel Vanessa PayID: [id number] [address] [place] [address] Effective: 2011 Policy Number: [id number] Medicaid Nathaniel Vanessa Group Name: 1 1 [address] PayID: [id number] [place] [address] Advance Directives Description No Information Available Problems Date Description Provider Status Onset: 01/01/2015 Severe cognitive impairment Juju Orozco M.D. Active Onset: 01/01/2015 Vicne de la Tourette's syndrome Juju Orozco M.D. Active Family History Date Family Member(s) Problem(s) Comments General Unknown Father Unknown Mother Unknown Social History Type Date Description Comments Sex Unknown Marital Status Single Lives With Assisted living Occupation works at [employer] Tobacco Use Start: Unknown Never Smoked Cigarettes Smoking Status Reviewed: 06/02/18 Never Smoked Cigarettes ETOH Use Denies alcohol use Tobacco Use Start: Unknown Patient has never smoked Recreational Drug Use Denies Drug Use Exercise Type/Frequency Exercises sporadically Allergies, Adverse Reactions, Alerts Description No Known Drug Allergies Medications Medication Date Status Form Strength Qnty SIG Indications Ordering Provider Haloperidol 04/08 Active Tablets 1mg 30tab 07/07 tab F95.2 s by mouth [place] Padilla twice a day Guanfacine HCL 09/07 Active Tablets 1mg 60tab take 2 s tablets [place] Padilla by mouth at bedtime Benztropine 07/01 Active Tablets 1mg 60tab 1 tablet Christopher Mes s by mouth [place] Padilla twice a day Metronidazole Active Lotion 0.75% 59ml apply on Unknown /0000 face Debrox Active Solution 6.5% 1bott 5 drops Unknown /0000 le in each ear every month Hydrochlorothiaz Active Tablets 12.5mg 90tab 1 by Unknown rupesh /0000 s mouth every day Fluoxetine HCL Active Capsules 20mg 1 by Unknown /0000 mouth every day Apap 00 Active Tablets 325mg prn Unknown /0000 Kaopectate Active Suspension 262mg/15M prn Unknown /0000 L Mylanta Active Suspension 200-200-2 15ml by Unknown /0000 0mg/5ML mouth every 4 hours for dyspepsia Sudafed Active Tablets 30mg 1-2 tabs Unknown Congestion /0000 every 4-6 hours as needed for congestio n Robitussin Cough Active Liquid 20-400mg/ 10 Unknown & Chest /0000 20ML millilite Congestion DM rs by Adult mouth every 4 hours as needed Triple Active Ointment apply to Unknown open wounds and abrasions twice a day as needed Hydrocortisone Active Cream 1% as needed Unknown /0000 Haloperidol 01/11 Hx Tablets 0.5mg 60tab 1 tablet F95.2 s by madeleine Padilla M.D. - twice a Haloperidol 06/22 Hx Tablets 0.5mg 60tab 1 tab by Juju Bryan /2011 s mouth Pam, - twice a M.D. Immunizations Description No Information Available Vital Signs Date Vital Result Comment 06/02/2018 2:10pm Height 69.6 inches 5'9.60" Weight 161.25 lb Heart Rate 53 /min BP Systolic Sitting 126 mmHg BP Diastolic Sitting 72 mmHg Respiratory Rate 16 /min O2 % BldC Oximetry 98 % BMI (Body Mass Index) 23.4 kg/m2 06/01/2017 3:17pm Height 69.6 inches 5'9.60" Weight 159.50 lb Heart Rate 70 /min BP Systolic Sitting 110 mmHg BP Diastolic Sitting 66 mmHg Respiratory Rate 20 /min O2 % BldC Oximetry 93 % BMI (Body Mass Index) 23.1 kg/m2 05/02/2016 10:05am Height 69.6 inches 5'9.60" Weight 178.38 lb Heart Rate 74 /min BP Systolic 132 mmHg BP Diastolic 82 mmHg BMI (Body Mass Index) 25.9 kg/m2 07/16/2015 1:55pm Height 69.6 inches 5'9.60" Weight 159.00 lb Heart Rate 64 /min BP Systolic Sitting 116 mmHg BP Diastolic Sitting 78 mmHg Respiratory Rate 16 /min BMI (Body Mass Index) 23.1 kg/m2 01/01/2015 1:06pm Height 69.6 inches 5'9.60" Weight 160.00 lb Heart Rate 74 /min BP Systolic Sitting 110 mmHg BP Diastolic Sitting 76 mmHg Respiratory Rate 12 /min BMI (Body Mass Index) 23.2 kg/m2 06/05/2014 10:49am Height 69.6 inches 5'9.60" Weight 161.00 lb Heart Rate 74 /min BP Systolic Sitting 108 mmHg BP Diastolic Sitting 76 mmHg Respiratory Rate 16 /min BMI (Body Mass Index) 23.4 kg/m2 05/01/2014 9:23am Heart Rate 78 /min BP Systolic Sitting 122 mmHg BP Diastolic Sitting 80 mmHg 04/03/2014 8:43am Height 69.6 inches 5'9.60" Weight 161.00 lb Heart Rate 80 /min BP Systolic Sitting 124 mmHg BP Diastolic Sitting 88 mmHg BMI (Body Mass Index) 23.4 kg/m2 Results Description No Information Available Procedures Description No Information Available Encounters Type Date Location Provider Dx Diagnosis Office Visit 06/01/2017 [place] Jorge.2 Tourette's 3:00p [facility] disorder Peritoneal D[facility] Registered Nurse F79 Unspecified intellectual disabilities Office Visit 05/02/2016 Leydi Prado95.2 Tourette's 10:00a [facility] Orozco disorder Peritoneal Dialysis Registered Nurse F79 Unspecified intellectual disabilities Office Visit 07/16/2015 Leydi Bryan F95.2 Tourette's 2:00p [facility] Orozco disorder Peritoneal Dialysis Registered Nurse F79 Unspecified intellectual disabilities Office Visit 01/01/2015 Leydi Bryan 307.23 Tourette's 1:00p [facility] Orozco Disorder Peritoneal Dialysis Registered Nurse 319 Unspecified Intellectual Disabilities Office Visit 06/05/2014 Leydi Bryan 307.23 Tourette's 10:45a [facility] Orozco Disorder Peritoneal Dialysis Registered Nurse 319 Unspecified Intellectual Disabilities Office Visit 05/29/2014 9:15a Orthopedic Krishna Patel6.1 [facility] Peritoneal D[facility] Registered Nurse M.D. AT [place] Office Visit 05/01/2014 9:00a Orthopedic Krishna Patel6.1 [facility] Peritoneal [facility] Registered Nurse M.D. AT [place] Office Visit 04/03/2014 8:15a Orthopedic Krishna Patel6.1 [facility] Peritoneal [facility] Registered Nurse M.D. AT [place] Office Visit 11/16/2013 12:45p [place]/Shweta Bryan 307.23 Tourette's [facility] O[facility] Disorder Of Peritoneal Dialysis Registered Nurse Office Visit 04/25/2013 2:15p [place]/Shweta Bryan 307.23 Tourette's [facility] Disorder Of Peritoneal Dialysis Registered Nurse 319 Unspecified Intellectual Disabilities Office Visit 10/18/2012 [place]/Shweta Bryan 307.23 Tourette's 1:45p [facility] Orozco M.D. Disorder Peritoneal Dialysis Registered Nurse 319 Unspecified Intellectual Disabilities Office Visit 04/12/2012 [place]/Shweta Bryan 307.23 Tourette's 9:30a [facility] Jose Orozco M.D. Disorder Peritoneal Dialysis Registered Nurse 319 Unspecified Intellectual Disabilities Plan of Treatment Future Appointment(s):06/01/2019 8:30 am - Will Padilla M.D. at [place]/ [place] [facility]
[2018-06-30 20:02] VITALS: BP 116/73
--- NOTE | 2018-06-30 20:25 | UC ---
Skin Complaint HPI - HPI Summary HPI Summary: Patient presents to urgent care with his 8. Today patient was noted to have a red patch the center of his chest as well as the periumbilical area. Patient does not know how long this been there. Caregiver does not know his patient dresses himself. Patient states intermittently itchy. Patient without any fevers chills or rashes. Patient without any nausea or vomiting. Patient does have hydrocortisone cream he put some dry skin on his elbows has not put this on this wound. Patient has mild MR but is conversant. Patient's MAR reviewed this visit. - History of Current Complaint Chief Complaint: UCRash Time Seen by Provider: 06/30/18 20:13 Stated Complaint: SKIN CONCERN ON CHEST AND STOMACH Hx Obtained From: Patient, Family/Water Mechanic Onset/Duration: Other - unknown Skin Exposure Onset/Duration: Days Ago Pain Intensity: 0 - Allergy/Home Medications Allergies/Adverse Reactions: Allergies Allergy/AdvReac Type Severity Reaction Status Date / Time No Known Allergies Allergy Verified 06/30/18 19:58 Home Medications: Home Medications Benztropine TAB* [Cogentin TAB*] 1 tab BID 06/30/18 [History Confirmed 06/30/18] FLUoxetine CAP* [Prozac CAP*] 1 cap QAM 06/30/18 [History Confirmed 06/30/18] Haloperidol CONC. JUANI (NF) [Haloperidol CONC. SOLUTION (NF)] 0.25 ml BID [History Confirmed 06/30/18] Hydrochlorothiazide TAB* [Hydrodiuril TAB*] 12.5 mg DAILY 06/30/18 [History Confirmed 06/30/18] Triamcinolone 0.5% CREAM(NF) [Triamcinolone 0.5% CREAM*] 1 applic BID 06/30/18 [ History Confirmed 06/30/18] guanFACINE TAB* [Tenex TAB*] 2 tab BEDTIME 06/30/18 [History Confirmed 06/30/18] metroNIDAZOLE [Metronidazole 0.75 % gel] 1 applic BEDTIME 06/30/18 [History Confirmed 06/30/18] PMH/Surg Hx/FS Hx/Imm Hx Previously Healthy: Yes Cardiovascular History: Hypertension Psychological History: Other - mild MR - Surgical History Surgical History: Yes Surgery Procedure, Year, and Place: TONSILLECTOMY. PROSTATE BIOPSYX 2 - Family History Known Family History: Positive: Unknown - pt unaware of his family history, Non- Contributory - Social History Occupation: Disabled Lives: [facility] Alcohol Use: None Substance Use Type: None Smoking Status (MU): Never Smoked Tobacco Have You Smoked in the Last Year: No - Immunization History Most Recent Influenza Vaccination: 05-01-15 Most Recent Tetanus Shot: 07-23-09 Hx Tetanus, Diphtheria Vaccination: Yes Vaccination Up to Date: Yes Review of Systems All Other Systems Reviewed And Are Negative: Yes Constitutional: Positive: Negative Skin: Positive: Rash Physical Exam - Summary Physical Exam Summary: Vital Signs Reviewed: Yes Alert,conversant, no distress Eyes: Conjunctiva Clear, ADAM. EOM intact and full ENT: Hearing grossly normal TM x 2 clear, mmoist, uvula midline, no exudate, no erythema Neck: Positive: Supple Respiratory: Positive: No respiratory distress, No accessory muscle use + CTA throughout no w/r Cardiovascular: RRR nl s1, s2 no m/r CBT <2 sec abd soft + BS nt/nd no guarding, no distension Musculoskeletal Exam: REYNOLDS x 4 without difficulty Strength Intact, ROM Intact Neurological: Positive: Alert, + sensation throughout Psychological: Positive: Normal Response To Family Skin: Positive: anterior chest, inferior margin on sternum pt with 2x3cm area circular rash, erythema with dry scale c/w tinea Non tender, no fluctuance, well circumscribed pt with similar lesion on umbilicus. Pt with dry scaly skin posterior left ear. non tender, no erythema Triage Information Reviewed: Yes Vital Signs: Initial Vital Signs Temp 97.8 F 06/30/18 19:58 Pulse 68 06/30/18 19:58 Resp 16 06/30/18 19:58 BP 116/73 06/30/18 19:58 Pulse Ox 100 06/30/18 19:58 Course/Dx - Course Course Of Treatment: Patient presents to urgent care with his 8. Patient with mild MR. Patient stated noted to have a rash on the sternum in his umbilicus. Patient unable to tell me how long its been there. Patient states at the age a little bit. Examination reveals a red scaly raised rash consistent with tinea. Patient well-appearing with stable vital signs. We'll prescribe clotrimazole ointment to put on these lesions. Patient was similar at his umbilicus. Recommend patient be rechecked in 7 days. Patient to follow-up with primary care or with dermatology referral information given. Patient can return without restrictions activities resume normal medications. senior living paperwork completed. Patient discharged with return precautions. - Diagnoses Provider Diagnosis: Tinea corporis Discharge - Sign-Out/Discharge Documenting (check all that apply): Patient Departure All imaging exams completed and their final reports reviewed: No Studies - Discharge Plan Condition: Stable Disposition: HOME Prescriptions: Clotrimazole 1% CREAM* [Clotrimazole 1%*] 1 applic TOPICAL BID #1 tube Patient Education Materials: Tinea Corporis (ED) Referrals: [facility] Dermatology [Provider Group] (Okay to call for an appointment in the [place] office [phone] ) Brigette Gómez MD [Primary Care Provider] - Additional Instructions: - Spply ointment to rash 2 times a day for 14 days - Wash hands thoroughly before and after applying ointment - Mr. Vanessa should be rechecked within 7 days - you may schedule a follow-up appointment or with the chef instructor you were referred to - you may request the [place] office - Billing Disposition and Condition Condition: STABLE Disposition: Home
== END 2018-06-30 20:51 | disposition home or self-care (01) ==
LOC: UCCORT 19:32
DX: B35.4 Tinea corporis (principal); I10 Essential (primary) hypertension
CPT/HCPCS: 99212; G0463

== ENCOUNTER 2018-12-06 15:08 | Emergency (ER) | payer MEDICARE, MEDICAID ==
--- OUTSIDE RECORDS SUMMARY | 2018-12-06 15:30 | XMS REPORT | Continuity of Care Document ---
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 Onset: 01/01/2015 Vince de la Tourette's syndrome Juju Orozco M.D. Onset: 01/01/2015 Family History Date Family Member(s) Observation Comments General Unknown Father Unknown Mother Unknown Social History Type Date Description Comments Sex Unknown Marital Status Single Lives With Assisted living Occupation works at [employer] Tobacco Use Start: Unknown Never Smoked Cigarettes Smoking Status Reviewed: 11/17/18 Never Smoked Cigarettes ETOH Use Denies alcohol use Tobacco Use Start: Unknown Patient has never smoked Recreational Drug Use Denies Drug Use Exercise Type/Frequency Exercises sporadically Allergies, Adverse Reactions, Alerts Description No Known Drug Allergies Medications Active Medications SIG Qnty Indications Ordering Date Provider Haloperidol Lactate 1/4 milliliters 30ml Piotr Lima 2mg/ml (0.5mg) in am N.P. 8 Concentrate 1/2 milliliter in the pm (1 mg) Guanfacine HCL take 2 tablets 60tabs Will 1mg Tablets by mouth at [place] Padilla 3 bedtime Benztropine Mesylate 1 tablet by 60tabs Will 1mg mouth twice a [place] Padilla 2 Tablets day Debrox 5-10 drops in Unknown 6.5% Solution each ear once a 0 day for 7 days Ibu 1 tab by mouth Unknown 600mg Tablets as needed 0 Hydrocortisone as needed Unknown 1% Cream 0 Triple Antibiotic apply to open Unknown Ointment wounds and 0 abrasions twice a day as needed Robitussin Cough & Chest 10 milliliters Unknown Congestion DM Adult by mouth every 4 0 hours as needed 20-400mg/20ML Liquid Sudafed Congestion 1-2 tabs every Unknown 30mg Tablets 4-6 hours as 0 needed for congestion Mylanta 15ml by mouth Unknown [id number]/5ML every 4 hours 0 Suspension for dyspepsia Kaopectate prn Unknown 262mg/15ML 0 Suspension Apap prn Unknown 325mg Tablets 0 Fluoxetine HCL 1 by mouth every Unknown 20mg Capsules day 0 Hydrochlorothiazide 1 by mouth every 90tabs Unknown 12.5mg day 0 Tablets History Medications Haloperidol 1/2 tab by 30tabs F95.2 Will Padilla, 04/08/2018 - 1mg Tablets mouth twice a M.D. 11/16/2018 day Haloperidol 1 tablet by 60tabs F95.2 Will Padilla, 01/11/2013 - 0.5mg mouth twice a M.D. 04/08/2018 Tablets day Haloperidol 1 tab by mouth 60tabs Juju Orozco, 06/22/2012 - 0.5mg twice a day M.D. 06/22/2012 Tablets Metronidazole apply on face 59ml Unknown - 0.75% 11/16/2018 Lotion Debrox 5 drops in 1bottle Unknown - 6.5% Solution each ear every 11/16/2018 month Vital Signs Date Vital Result Comment 11/17/2018 3:29pm Height 69.6 inches 5'9.60" Weight 160.25 lb Heart Rate 62 /min BP Systolic 102 mmHg BP Diastolic 84 mmHg BMI (Body Mass Index) 23.3 kg/m2 06/02/2018 2:10pm Height 69.6 inches 5'9.60" Weight [...] mmHg BMI (Body Mass Index) 23.4 kg/m2 Encounters Type Date Location Provider Dx Diagnosis Office Visit 09/23/2018 [facility] Adriane Riddle, L40.0 Psoriasis 4:20p [place] [facility] vulgaris L21.8 Other seborrheic dermatitis Office Visit 06/02/2018 [place]/Shweta Solis F95.2 Tourette's 2:15p [facility] Padilla disorder [facility] F79 Unspecified intellectual disabilities Office Visit 06/01/2017 [place]/Shweta Bryan F95.2 Tourette's 3:00p [facility] Orozco disorder [facility] F79 Unspecified intellectual disabilities Office Visit 05/02/2016 [place]/Shweta Bryan F95.2 Tourette's 10:00a [facility]co disorder [facility] F79 Unspecified intellectual disabilities Office Visit 07/16/2015 [place]/Shweta Bryan F95.2 Tourette's 2:00p [facility] O[facility]co disorder [facility] F79 Unspecified intellectual disabilities Office Visit 01/01/2015 [place]/Shweta Bryan 307.23 Tourette's 1:00p [facility]co Disorder [facility] 319 Unspecified Intellectual Disabilities Office Visit 06/05/2014 [place]/Shweta Bryan 307.23 Tourette's 10:45a [facility]co Disorder [facility] 319 Unspecified Intellectual Disabilities Office Visit 05/29/2014 9:15a Orthopedic Krishna Patel6.1 [facility] M[facility]. AT [place] Office Visit 05/01/2014 9:00a Orthopedic Meseret Patel.1 [facility] M[facility] AT [place] Office Visit 04/03/2014 8:15a Orthopedic Meseret Patel.1 [facility] M.[facility]. AT [place] Office Visit 11/16/2013 12:45p Leydi Bryan 307.23 Tourette's [facility] Disorder Of [facility] Office Visit 04/25/2013 2:15p Leydi Bryan 307.23 Tourette's [facility] Disorder Of [facility] 319 Unspecified Intellectual Disabilities Office Visit 10/18/2012 [place]/Shweta Bryan 307.23 Tourette's 1:45p [facility]co Disorder [facility] 319 Unspecified Intellectual Disabilities Office Visit 04/12/2012 [place]/Shweta Bryan 307.23 Tourette's 9:30a [facility]co Disorder [facility] 319 Unspecified Intellectual Disabilities Plan of Treatment Future Appointment(s):02/23/2019 3:00 pm - Piotr Lima N.Jim. at [facility]12/09/2018 3:40 pm - Adriane Riddle MD at [facility] Dermatology AT [place]63/27/2019 8:30 am - Will Padilla M.D. at [facility]11/17/2018 - Piotr Lima N.Jim.F95.2 Tourette's disorderFollow up:3 monthsRecommendations:Please send in the records from his counselor and his psychiatrist from his next [id number] Unspecified intellectual disabilities
[2018-12-06 15:33] VITALS: BP 148/84
--- NOTE | 2018-12-06 15:45 | UC ---
Skin Complaint HPI - HPI Summary HPI Summary: 58-year-old developmentally delayed male who lives in a alf with a rash to his posterior right lower leg. He is unsure how long he's had at the caregiver states that they just noticed it today. Patient has a milder type rash on his left leg same area so I'm thinking maybe his shoes are rubbing this and irritating it. - History of Current Complaint Chief Complaint: UCSkin Time Seen by Provider: 12/06/18 15:30 Stated Complaint: RASH RIGHT ANKLE Hx Obtained From: Patient Onset/Duration: Gradual Onset, Other - Unsure of the onset according to the caregiver. Patient lives in a alf. Skin Exposure Onset/Duration: Days Ago Timing: Constant Onset Severity: Mild Current Severity: Mild Pain Intensity: 0 Location: Other - Rash is of the back of his right foot and ascends approximately 5.0 cm from the base of the Achilles tendon. Aggravating Factor(s): Nothing Alleviating Factor(s): Nothing Associated Signs & Symptoms: Positive: Negative - Allergy/Home Medications Allergies/Adverse Reactions: Allergies Allergy/AdvReac Type Severity Reaction Status Date / Time No Known Allergies Allergy Verified 12/06/18 15:32 Home Medications: Home Medications Acetaminophen TAB* [Tylenol TAB*] 650 mg PO Q4H PRN 12/06/18 [History Confirmed 12/06/18] Al Hydrox/Mg Hydrox/Dhara BULK* [Mylanta - BULK BOT*] 1 jake PO Q4H PRN 12/06/18 [ History Confirmed 12/06/18] Bismuth Subsalicylate [Joseph Bismuth] 30 ml PO DAILY PRN 12/06/18 [History Confirmed 12/06/18] Carbamide Peroxide 6.5% OTIC* [DEBROX 6.5% Otic*] 2 drop BOTH EARS DAILY [History Confirmed 12/06/18] Fluocinonide 0.05% CREAM(NF) 1 applic TOPICAL DAILY PRN 12/06/18 [History Confirmed 12/06/18] Haloperidol CONC. JUANI (NF) [Haloperidol CONC. SOLUTION (NF)] 1 mg PO BEDTIME 09/21 [History Confirmed 12/06/18] Hydrocortisone 2.5% CREAM(NF) 1 applic TOPICAL DAILY PRN 12/06/18 [History Confirmed 12/06/18] Ibuprofen TAB* [Motrin TAB* 600 MG] 600 mg PO Q8H PRN 12/06/18 [History Confirmed 12/06/18] Ketoconazole 2 % CREAM (NF) [Nizoral 2% CREAM (NF)] 1 applic TOPICAL BID [History Confirmed 12/06/18] Neomycin/Bacitracin/Polymyxinb [Triple Antibiotic Ointment] 1 each TP BID PRN [History Confirmed 12/06/18] PMH/Surg Hx/FS Hx/Imm Hx Previously Healthy: Yes Cardiovascular History: Hypertension - Surgical History Surgical History: Yes Surgery Procedure, Year, and Place: TONSILLECTOMY. PROSTATE BIOPSYX 2 - Family History Known Family History: Positive: Unknown - pt unaware of his family history, Non- Contributory - Social History Occupation: Disabled Lives: [employer] Alcohol Use: None Substance Use Type: None Smoking Status (MU): Never Smoked Tobacco Have You Smoked in the Last Year: No - Immunization History Most Recent Influenza Vaccination: 05-01-15 Most Recent Tetanus Shot: 07-23-09 Hx Tetanus, Diphtheria Vaccination: Yes Vaccination Up to Date: Yes Review of Systems All Other Systems Reviewed And Are Negative: Yes Skin: Positive: Rash - henri on back of right foot and a sense approximately 5.0 cm from the Achilles tendon base. Is Patient Immunocompromised?: No Physical Exam Triage Information Reviewed: Yes Appearance: Well-Appearing, No Pain Distress, Well-Nourished Vital Signs: Initial Vital Signs Temp 97.1 F 12/06/18 15:29 Pulse 62 12/06/18 15:29 Resp 16 12/06/18 15:29 BP 148/84 12/06/18 15:29 Pulse Ox 100 12/06/18 15:29 Vital Signs Reviewed: Yes Musculoskeletal Exam: Normal Neurological Exam: Normal Psychological Exam: Normal Skin: Positive: Rashes - The rash on the back of the left foot and Achilles tendon area is very dry and scaly with a mildly erythematous base but not warm to touch. There is no drainage. Achilles is intact and nontender. Course/Dx - Course Course Of Treatment: This is a mentally disabled male who looks like he has a chronic rash possibly psoriasis behind his right foot. I did prescribe Lotrisone cream twice a day but definite follow-up with a security patrol officer over the next week if no improvement with the cream. - Diagnoses Provider Diagnosis: Rash and nonspecific skin eruption Discharge - Sign-Out/Discharge Documenting (check all that apply): Patient Departure All imaging exams completed and their final reports reviewed: No Studies - Discharge Plan Condition: Fair Disposition: HOME Prescriptions: Clotrimazole/Betamethasone* [Lotrisone Cream*] 1 applic TOPICAL BID 7 Days #1 tube Patient Education Materials: Acute Rash (ED) Referrals: Brigette Gómez MD [Primary Care Provider] - Additional Instructions: Applied the Lotrisone cream for one week and if no improvement follow-up with the security patrol officer for further care. - Billing Disposition and Condition Condition: FAIR Disposition: Home
== END 2018-12-06 15:55 | disposition home or self-care (01) ==
LOC: UCCORT 15:08
DX: R21 Rash and other nonspecific skin eruption (principal); I10 Essential (primary) hypertension; Z79.899 Other long term (current) drug therapy
CPT/HCPCS: 99212; G0463